=== PATIENT | male | born 1955 | race Caucasian/White ===

== ENCOUNTER 2016-07-13 08:06 | Emergency (ER) | payer OTHER ==
[~2016-07-13] VITALS: Ht 175.3 cm; Wt 111.1 kg
[2016-07-13 09:44] VITALS: BP 128/68
== END 2016-07-13 11:58 | disposition home or self-care (01) ==
LOC: ER 08:06 → EDBD 08:06 → EDUNIT# 08:06 → ER 11:58
DX: S43.004A Unspecified dislocation of right shoulder joint, initial encounter (principal); I10 Essential (primary) hypertension; E07.89 Other specified disorders of thyroid; Z87.891 Personal history of nicotine dependence; X58.XXXA Exposure to other specified factors, initial encounter; Y93.89 Activity, other specified; Y99.8 Other external cause status; Y92.89 Other specified places as the place of occurrence of the external cause
CPT/HCPCS: 23650; 73030; 94760; 99152

== ENCOUNTER 2016-09-21 17:05 | Emergency (ER) | payer OTHER ==
[~2016-09-21] VITALS: Ht 180.3 cm; Wt 99.8 kg
[2016-09-21] MEDS ORDERED: HYDROmorphone HCL 2 MG/ML VL IV ONE (19:00)
[2016-09-21] MEDS ORDERED: ONDANSETRON HCL 4 MG/2 ML VIAL IV ONE (19:00)
[2016-09-21] MEDS ORDERED: SODIUM CHLORIDE 0.9% 1,000 ML IV ONE (19:15)
[2016-09-21] MEDS ORDERED: ETOMIDATE (2MG/ML) 20ML VIAL IV ONE ×2 (19:45→21:00)
[2016-09-21] MEDS ORDERED: SUCCINYLCHOLINE CHLORIDE 20 MG/ML 10ML VIAL IV ONE (19:51)
[2016-09-21 21:10] VITALS: BP 139/88
== END 2016-09-21 22:07 | disposition home or self-care (01) ==
LOC: EDBD 17:05 → ER 17:11
DX: I10 Essential (primary) hypertension (principal); E07.9 Disorder of thyroid, unspecified; Z87.891 Personal history of nicotine dependence; S43.004A Unspecified dislocation of right shoulder joint, initial encounter; X50.9XXA Other and unspecified overexertion or strenuous movements or postures, initial encounter; Y93.89 Activity, other specified; Y92.89 Other specified places as the place of occurrence of the external cause; Y99.8 Other external cause status
CPT/HCPCS: 23650; 73030; 96361; 96374; 96375; 99152; 99285; J1170; J2405; J7030; J0330

== ENCOUNTER 2016-10-18 06:18 | Emergency (ER) | payer OTHER ==
[~2016-10-18] VITALS: Ht 175.3 cm; Wt 108.9 kg
[2016-10-18] MEDS ORDERED: ONDANSETRON HCL 4 MG/2 ML VIAL IV ONE (06:45)
[2016-10-18] MEDS ORDERED: HYDROmorphone HCL 2 MG/ML VL IV ONE (06:45)
[2016-10-18 08:45] VITALS: BP 119/77
== END 2016-10-18 08:54 | disposition home or self-care (01) ==
LOC: ER 06:18 → EDBD 06:18 → ER 08:54
DX: S43.004A Unspecified dislocation of right shoulder joint, initial encounter (principal); I10 Essential (primary) hypertension; Z87.891 Personal history of nicotine dependence; X58.XXXA Exposure to other specified factors, initial encounter; Y93.89 Activity, other specified; Y92.89 Other specified places as the place of occurrence of the external cause; Y99.8 Other external cause status
CPT/HCPCS: 23650; 73030; 96374; 96375; 99284; J1170; J2405

== ENCOUNTER 2016-11-21 14:30 | Emergency (ER) | payer OTHER ==
[~2016-11-21] VITALS: Ht 175.3 cm; Wt 108.9 kg
[2016-11-21 15:30] VITALS: BP 148/84
[2016-11-21] MEDS ORDERED: traMADol HCL 50 MG TAB PO ONE (15:30)
== END 2016-11-21 16:52 | disposition home or self-care (01) ==
LOC: ER 14:30
DX: S43.004A Unspecified dislocation of right shoulder joint, initial encounter (principal); I10 Essential (primary) hypertension; Z87.891 Personal history of nicotine dependence; X58.XXXA Exposure to other specified factors, initial encounter; Y93.89 Activity, other specified; Y99.8 Other external cause status; Y92.89 Other specified places as the place of occurrence of the external cause
CPT/HCPCS: 23650; 73030

== ENCOUNTER 2016-12-23 08:49 | Emergency (ER) | payer OTHER ==
[~2016-12-23] VITALS: Ht 175.3 cm; Wt 108.9 kg
[2016-12-23 09:00] VITALS: BP 146/86
== END 2016-12-23 09:42 | disposition home or self-care (01) ==
LOC: ER 08:49 → EDBD 08:49 → ER 09:10
DX: S43.004A Unspecified dislocation of right shoulder joint, initial encounter (principal); I10 Essential (primary) hypertension; E07.89 Other specified disorders of thyroid; Z87.891 Personal history of nicotine dependence; Z88.8 Allergy status to other drugs, medicaments and biological substances; X58.XXXA Exposure to other specified factors, initial encounter; Y99.8 Other external cause status; Y93.89 Activity, other specified; Y92.89 Other specified places as the place of occurrence of the external cause
CPT/HCPCS: 23650

== ENCOUNTER 2016-12-26 02:47 | Emergency (ER) | payer OTHER ==
[~2016-12-26] VITALS: Ht 175.3 cm; Wt 104.3 kg
[2016-12-26] MEDS ORDERED: HYDROmorphone HCL 2 MG/ML VL IV ONE (04:45)
[2016-12-26] MEDS ORDERED: ONDANSETRON HCL 4 MG/2 ML VIAL IV ONE (04:45)
[2016-12-26 05:45] VITALS: BP 127/74
[2016-12-26] MEDS ORDERED: ETOMIDATE (2MG/ML) 20ML VIAL IV ONE (05:45)
== END 2016-12-26 15:31 | disposition home or self-care (01) ==
LOC: EDBD 02:47 → ER 02:51
DX: S43.004A Unspecified dislocation of right shoulder joint, initial encounter (principal); I10 Essential (primary) hypertension; X58.XXXA Exposure to other specified factors, initial encounter; Y93.89 Activity, other specified; Y92.89 Other specified places as the place of occurrence of the external cause; Y99.8 Other external cause status; Z87.891 Personal history of nicotine dependence; Z88.8 Allergy status to other drugs, medicaments and biological substances
CPT/HCPCS: 23650; 73020; 96374; 96375; 99285; J1170; J2405

== ENCOUNTER 2016-12-31 10:28 | Observation (INO) | payer OTHER ==
[~2016-12-31] VITALS: Ht 177.8 cm; Wt 108.9 kg
[2016-12-31 12:56] LABS: Basophils # (auto) 0.1 uL; Basophils % (auto) 0.9 % (0.0-2.0); Eosinophils # (auto) 0.1 uL; Eosinophils % (auto) 0.7 % (0.0-7.0); Hematocrit 45.3 % (41.0-53.0); Hemoglobin 15.4 g/dL (13.5-17.5); Lymphocytes % (auto) 19.5 % (10.0-50.0); Mean Corpuscular Hemoglobin 29.6 pg (28.0-32.0); Mean Platelet Volume 8.7 fL (6.9-10.8); Monocytes % (auto) 9.7 % (0.0-12.0); Neutrophils % (auto) 69.2 % (37.0-80.0); Nucleated Red Blood Cells % 0.1 %; Platelet Count (auto) 201 10^3/uL (140-450); Red Cell Distribution Width 14.8 % (11.8-14.3); White Blood Cell 10.1 10^3/uL (4.4-10.8)
[2016-12-31 13:09] LABS: INR 0.96 (0.9-1.15); Partial Thromboplastin Time 25.2 sec (22.64-33.71); Prothrombin Time 10.5 sec (9.37-12.3)
[2016-12-31 13:15] LABS: Albumin 3.7 g/dL (3.4-5.0); Anion Gap 7 (5-15); BUN/Creatinine Ratio 15.1; Blood Urea Nitrogen 14 mg/dL (7-18); Calcium 9.8 mg/dL (8.5-10.1); Carbon Dioxide 23 mmol/L (21-32); Chloride 108 mmol/L (98-107); GFR African American 107 mL/min; GFR Non-African American 88 mL/min; Glucose 93 mg/dL (74-106); Magnesium 2.5 mg/dL (1.6-2.6); Potassium 4.1 mmol/L (3.5-5.1); Sodium 138 mmol/L (136-145)
[2016-12-31 13:30] LABS: Alkaline Phosphatase 69 U/L (45-117); Aspartate Aminotransferase 24 U/L (15-37); Bilirubin, Total 0.5 mg/dL (0.2-1.0); Total Protein 7.4 g/dL (6.4-8.2)
[2016-12-31 14:24] VITALS: BP 133/75
== END 2016-12-31 15:05 | disposition home or self-care (01) | DRG 305 ==
LOC: ER 10:28 → OVERFLOW 11:33 → ER 15:05
PROVIDERS: ADMIT Family Medicine; ATTEND Family Medicine
DX: I10 Essential (primary) hypertension (principal); G89.29 Other chronic pain; H66.90 Otitis media, unspecified, unspecified ear; R04.0 Epistaxis; R51 Headache; M54.5 Low back pain; Z87.891 Personal history of nicotine dependence; Z83.3 Family history of diabetes mellitus; Z82.49 Family history of ischemic heart disease and other diseases of the circulatory system
CPT/HCPCS: 36415; 70450; 71010; 80053; 83735; 84484; 85025; 85610; 85730; 93005; 99285; G0378

== ENCOUNTER 2017-01-26 00:14 | Emergency (ER) | payer OTHER ==
[~2017-01-26] VITALS: Ht 175.3 cm; Wt 108.9 kg
[2017-01-26] MEDS ORDERED: cloNIDine HCL 0.1 MG TAB ONE (00:30)
[2017-01-26] MEDS ORDERED: cloNIDine HCL 0.1 MG TAB PO ONE (00:45)
[2017-01-26] MEDS ORDERED: NALBUPHINE HCL 10 MG/1ml INJECTION ONE (04:35)
[2017-01-26] MEDS ORDERED: NALBUPHINE HCL 10 MG/1ml INJECTION IV ONE (05:15)
[2017-01-26 07:30] VITALS: BP 130/87
[2017-01-26] MEDS ORDERED: traMADol HCL 50 MG TAB PO ONE (07:45)
== END 2017-01-26 09:00 | disposition home or self-care (01) ==
LOC: ER 00:15
DX: S43.004A Unspecified dislocation of right shoulder joint, initial encounter (principal); E07.9 Disorder of thyroid, unspecified; I10 Essential (primary) hypertension; Z88.8 Allergy status to other drugs, medicaments and biological substances; X58.XXXA Exposure to other specified factors, initial encounter; Y93.89 Activity, other specified; Y92.89 Other specified places as the place of occurrence of the external cause; Y99.8 Other external cause status
CPT/HCPCS: 23650; 73020; 73030; 96374; 99284; J2300

== ENCOUNTER 2017-02-08 10:14 | Emergency (ER) | payer OTHER ==
[~2017-02-08] VITALS: Ht 175.3 cm; Wt 106.6 kg
[2017-02-08 10:20] VITALS: BP 168/94
== END 2017-02-08 11:08 | disposition home or self-care (01) ==
LOC: ER 10:14
DX: S43.004A Unspecified dislocation of right shoulder joint, initial encounter (principal); I10 Essential (primary) hypertension; Z87.891 Personal history of nicotine dependence; Z83.3 Family history of diabetes mellitus; X58.XXXA Exposure to other specified factors, initial encounter; Y93.89 Activity, other specified; Y92.89 Other specified places as the place of occurrence of the external cause; Y99.8 Other external cause status
CPT/HCPCS: 23650; 73030

== ENCOUNTER 2022-02-09 07:24 | Emergency (ER) | payer OTHER ==
[~2022-02-09] VITALS: Ht 170.2 cm; Wt 76.0 kg
[2022-02-09] MEDS ORDERED: SODIUM CHLORIDE 0.9% 1,000 ML IV ONE (11:30)
[2022-02-09] MEDS ORDERED: SODIUM CHLORIDE 0.9% 500 ML IVB ONE (11:30)
[2022-02-09 12:05] LABS: Basophils # (auto) 0.1 10 ^3/uL (0-0.2); Basophils % (auto) 0.7 % (0.0-2.0); Eosinophils # (auto) 0.1 10 ^3/uL (0-0.8); Eosinophils % (auto) 1.2 % (0.0-7.0); Hematocrit 42.4 % (41.0-53.0); Hemoglobin 13.9 g/dL (13.5-17.5); Lymphocytes # (auto) 1.9 10 ^3/uL (0.4-5.4); Lymphocytes % (auto) 22.8 % (10.0-50.0); Mean Corpuscular Hemoglobin 27.9 pg (28.0-32.0); Mean Corpuscular Hgb Conc. 32.8 g/dL (32.0-36.0); Mean Corpuscular Volume 85.2 fL (80.0-100.0); Monocytes # (auto) 0.9 10 ^3/uL (0-1.3); Monocytes % (auto) 11.3 % (0.0-12.0); Neutrophils # (auto) 5.2 10 ^3/uL (1.6-8.6); Nucleated Red Blood Cells % 0.1 %; Red Blood Cells 4.97 10^6/uL (4.5-5.90); Red Cell Distribution Width 15.4 % (11.8-14.3); White Blood Cell 8.1 10^3/uL (4.4-10.8)
[2022-02-09 12:15] LABS: Albumin 3.4 g/dL (3.4-5.0); Calcium 10.1 mg/dL (8.5-10.1); Potassium 4.6 mmol/L (3.5-5.1)
[2022-02-09 12:19] LABS: BUN/Creatinine Ratio 21.2; Bilirubin, Total 0.8 mg/dL (0.2-1.0); Total Protein 6.4 g/dL (6.4-8.2)
[2022-02-09 17:24] LABS: Urine Bacteria NONE SEEN /hpf (None Seen); Urine Blood Negative /uL (Negative); Urine Mucus FEW (None Seen); Urine Specific Gravity 1.026 (1.001-1.035); Urine WBC 3 /hpf (0 - 3)
[2022-02-09] MEDS ORDERED: FUROSEMIDE 40 MG TAB PO ONE (17:45)
[2022-02-09] MEDS ORDERED: SPIRONOLACTONE 25 MG TAB PO ONE (17:45)
[2022-02-09 17:48] LABS: Amphetamine Screen, Urine NEGATIVE (NEGATIVE); Barbiturate Scree,Urine NEGATIVE (NEGATIVE); Benzodiazephine Screen, Urine NEGATIVE (NEGATIVE); Cannabinoid Screen, Urine POSITIVE (NEGATIVE); Cocaine Screen, Urine NEGATIVE (NEGATIVE); Opiate Scree,Urine NEGATIVE (NEGATIVE); Phencyclidine Screen, Urine NEGATIVE (NEGATIVE)
[2022-02-09 18:03] VITALS: BP 148/73
== END 2022-02-09 18:04 | disposition home or self-care (01) ==
LOC: ER 07:24 → EDBD 07:24 → ER 18:04
DX: R60.9 Edema, unspecified (principal); T78.40XA Allergy, unspecified, initial encounter; R94.31 Abnormal electrocardiogram [ECG] [EKG]; X58.XXXA Exposure to other specified factors, initial encounter
CPT/HCPCS: 36415; 71046; 80053; 80307; 81001; 83690; 83735; 85025; 93005

== ENCOUNTER 2022-06-15 07:53 | Inpatient (IN) | payer MEDICARE, OTHER ==
[~2022-06-15] VITALS: Ht 172.7 cm; Wt 86.4 kg
[~2022-06-15 07:53] MED LIST: ATOR20TA PO; BACL20TA PO; CALC0.25 PO; FINA5TAB4 PO; IBUP800T27 PO; OXY10CRT PO; PERCOT PO; TAM04C PO
[2022-06-15 08:45] LABS: Basophils # (auto) 0.1 10 ^3/uL (0-0.2); Eosinophils # (auto) 0.2 10 ^3/uL (0-0.8); Hemoglobin 8.4 g/dL (13.5-17.5); Mean Corpuscular Hemoglobin 26.9 pg (28.0-32.0); Monocytes # (auto) 0.7 10 ^3/uL (0-1.3); Neutrophils # (auto) 5.7 10 ^3/uL (1.6-8.6)
[2022-06-15 08:47] LABS: Eosinophils % (auto) 2.4 % (0.0-7.0); Lymphocytes # (auto) 1.1 10 ^3/uL (0.4-5.4); Lymphocytes % (auto) 13.9 % (10.0-50.0); Mean Corpuscular Hgb Conc. 32.3 g/dL (32.0-36.0); Mean Corpuscular Volume 83.4 fL (80.0-100.0); Monocytes % (auto) 8.7 % (0.0-12.0); Red Blood Cells 3.12 10^6/uL (4.5-5.90); Red Cell Distribution Width 16.8 % (11.8-14.3); White Blood Cell 7.7 10^3/uL (4.4-10.8)
[2022-06-15 09:03] LABS: INR 1.06 (0.9-1.15); Partial Thromboplastin Time 25.4 sec (24.6-33.4)
[2022-06-15 09:04] LABS: Albumin 2.6 g/dL (3.4-5.0); Potassium 3.4 mmol/L (3.5-5.1)
[2022-06-15 09:07] LABS: BUN/Creatinine Ratio 16.1 (10.0-20.0); Bilirubin, Total 0.3 mg/dL (0.2-1.0)
[2022-06-15] MEDS ORDERED: MORPHINE SULFATE 4 MG/ML SYR/VIAL IV ONE (11:00)
[2022-06-15] MEDS ORDERED: ONDANSETRON HCL 4 MG/2 ML VIAL IV ONE (11:00)
[2022-06-15 11:23] LABS: Urine Bacteria NONE SEEN /hpf (None Seen); Urine Blood 3+ /uL (Negative); Urine Mucus FEW (None Seen); Urine Specific Gravity 1.022 (1.001-1.035); Urine WBC 445 /hpf (0 - 3); Urine WBC Clumps PRESENT /hpf (None Seen)
[2022-06-15] MEDS ORDERED: cefTRIAXone 1GM/50ML D5W 50 ML IV ONE (13:15)
[2022-06-15 13:28] LABS: Basophils # (auto) 0.1 10 ^3/uL (0-0.2); Eosinophils # (auto) 0.2 10 ^3/uL (0-0.8); Monocytes # (auto) 0.8 10 ^3/uL (0-1.3); Red Cell Distribution Width 16.2 % (11.8-14.3)
[2022-06-15 13:30] LABS: Basophils % (auto) 0.7 % (0.0-2.0); Eosinophils % (auto) 2.7 % (0.0-7.0); Hematocrit 25.1 % (41.0-53.0); Lymphocytes # (auto) 1.7 10 ^3/uL (0.4-5.4); Lymphocytes % (auto) 21.1 % (10.0-50.0); Mean Corpuscular Hemoglobin 26.7 pg (28.0-32.0); Mean Corpuscular Hgb Conc. 31.8 g/dL (32.0-36.0); Mean Corpuscular Volume 83.8 fL (80.0-100.0); Monocytes % (auto) 9.7 % (0.0-12.0); Neutrophils # (auto) 5.3 10 ^3/uL (1.6-8.6); Neutrophils % (auto) 65.8 % (37.0-80.0); Red Blood Cells 2.99 10^6/uL (4.5-5.90); White Blood Cell 8.1 10^3/uL (4.4-10.8)
[2022-06-15] MEDS ORDERED: ASPirin 81 mg TAB PO ONE (14:15)
[2022-06-15] MEDS ORDERED: KETOROLAC TROMETH 30 MG/ML 1ML VIAL IV ONE (15:30)
[2022-06-15] MEDS ORDERED: HEPARIN SODIUM (PORCINE) 5000 UNITS/ML 1ML VIAL IV ONE ×2 (16:15→16:30)
[2022-06-15] MEDS ORDERED: NITROGLYCERIN 0.4 MG SL TAB SL PRN (16:15)
[2022-06-15] MEDS ORDERED: HEPARIN DRIP/D5W 100UNITS/ML 250 ML IV SCH (16:15)
[2022-06-15] MEDS ORDERED: MORPHINE SULFATE INJ 2 MG/ml SYRG IV PRN ×2 (16:15→23:30)
[2022-06-15] MEDS ORDERED: HYDROcodone-ACET 5/325MG TAB PO PRN (16:15)
[2022-06-15] MEDS ORDERED: POTASSIUM EFFERVESENT TAB 25 MEQ PO ONE (16:15)
[2022-06-15] MEDS ORDERED: PANTOPRAZOLE 40 MG/10 ML VIAL INJ IV ONE (16:45)
[2022-06-15 17:00] LABS: Eosinophils # (auto) 0.2 10 ^3/uL (0-0.8); Nucleated Red Blood Cells % 0.1 %
[2022-06-15 17:02] LABS: Basophils # (auto) 0.1 10 ^3/uL (0-0.2); Basophils % (auto) 0.7 % (0.0-2.0); Eosinophils % (auto) 3.1 % (0.0-7.0); Hematocrit 24.4 % (41.0-53.0); Lymphocytes # (auto) 1.8 10 ^3/uL (0.4-5.4); Lymphocytes % (auto) 23.9 % (10.0-50.0); Mean Corpuscular Hgb Conc. 32.8 g/dL (32.0-36.0); Mean Corpuscular Volume 82.2 fL (80.0-100.0); Monocytes # (auto) 0.8 10 ^3/uL (0-1.3); Monocytes % (auto) 10.5 % (0.0-12.0); Neutrophils # (auto) 4.7 10 ^3/uL (1.6-8.6); Neutrophils % (auto) 61.8 % (37.0-80.0); Red Blood Cells 2.97 10^6/uL (4.5-5.90); Red Cell Distribution Width 16.3 % (11.8-14.3); White Blood Cell 7.6 10^3/uL (4.4-10.8)
[2022-06-15 17:15] LABS: INR 1.08 (0.9-1.15); Partial Thromboplastin Time 26.9 sec (24.6-33.4)
[2022-06-15 17:19] LABS: % Iron Saturation 6.9 % (20-55)
[2022-06-15] MEDS: HEPARIN DRIP/D5W 100UNITS/ML 250 ML IV SCH (18:04)
[2022-06-15] MEDS: SODIUM CHLORIDE 0.9% 1,000 ML IV SCH (18:32)
[2022-06-15] MEDS: ACETAMINOPHEN 325 MG TAB PO PRN (21:00)
[2022-06-15 22:28] LABS: Basophils # (auto) 0.1 10 ^3/uL (0-0.2); Basophils % (auto) 1.2 % (0.0-2.0); Eosinophils # (auto) 0.3 10 ^3/uL (0-0.8); Nucleated Red Blood Cells % 0.1 %
[2022-06-15 22:29] LABS: Eosinophils % (auto) 3.5 % (0.0-7.0); Hemoglobin 7.8 g/dL (13.5-17.5); Lymphocytes # (auto) 2.3 10 ^3/uL (0.4-5.4); Lymphocytes % (auto) 25.8 % (10.0-50.0); Mean Corpuscular Hemoglobin 26.6 pg (28.0-32.0); Mean Corpuscular Hgb Conc. 32.5 g/dL (32.0-36.0); Mean Corpuscular Volume 82.1 fL (80.0-100.0); Monocytes # (auto) 0.9 10 ^3/uL (0-1.3); Monocytes % (auto) 10.2 % (0.0-12.0); Neutrophils # (auto) 5.4 10 ^3/uL (1.6-8.6); Neutrophils % (auto) 59.3 % (37.0-80.0); Red Blood Cells 2.92 10^6/uL (4.5-5.90); White Blood Cell 9.1 10^3/uL (4.4-10.8)
[2022-06-16 00:51] LABS: INR 1.11 (0.9-1.15); Partial Thromboplastin Time 52.4 sec (24.6-33.4)
[2022-06-16] MEDS ORDERED: DOCUSATE SOD 100 MG CAP PO PRN (01:30)
[2022-06-16] MEDS: ACETAMINOPHEN 325 MG TAB PO PRN ×4 (02:53→22:32)
[2022-06-16] MEDS: BACLOFEN 10 MG TAB PO PRN ×3 (05:13→22:33)
[2022-06-16 06:42] LABS: Basophils # (auto) 0 10 ^3/uL (0-0.2); Basophils % (auto) 0.6 % (0.0-2.0); Eosinophils # (auto) 0.3 10 ^3/uL (0-0.8); Hemoglobin 8.1 g/dL (13.5-17.5); Lymphocytes # (auto) 2.4 10 ^3/uL (0.4-5.4); Monocytes # (auto) 0.7 10 ^3/uL (0-1.3)
[2022-06-16 06:44] LABS: Hematocrit 24.4 % (41.0-53.0); Lymphocytes % (auto) 32.3 % (10.0-50.0); Mean Corpuscular Hemoglobin 27.3 pg (28.0-32.0); Mean Corpuscular Volume 82.6 fL (80.0-100.0); Monocytes % (auto) 8.8 % (0.0-12.0); Neutrophils # (auto) 4.1 10 ^3/uL (1.6-8.6); Neutrophils % (auto) 54.3 % (37.0-80.0); Red Blood Cells 2.96 10^6/uL (4.5-5.90); Red Cell Distribution Width 16.1 % (11.8-14.3); White Blood Cell 7.6 10^3/uL (4.4-10.8)
[2022-06-16 07:00] LABS: Albumin 2.3 g/dL (3.4-5.0); Calcium 8.8 mg/dL (8.5-10.1); Potassium 3.9 mmol/L (3.5-5.1)
[2022-06-16 07:05] LABS: BUN/Creatinine Ratio 19.3 (10.0-20.0); Bilirubin, Total 0.2 mg/dL (0.2-1.0); Total Protein 5.6 g/dL (6.4-8.2)
[2022-06-16 07:15] LABS: INR 1.07 (0.9-1.15); Partial Thromboplastin Time 41.7 sec (24.6-33.4)
[2022-06-16] MEDS: cefTRIAXone 1GM/50ML D5W 50 ML IV SCH (09:02)
[2022-06-16] MEDS: SODIUM CHLORIDE 0.9% 1,000 ML IV SCH (09:02)
[2022-06-16] MEDS: TAMSULOSIN HYDROCHLORIDE 0.4 MG CAP PO SCH (10:13)
[2022-06-16] MEDS: CALCITRIOL 0.25 MCG CAP PO SCH (10:13)
[2022-06-16] MEDS: ATORVASTATIN 20 MG TAB PO SCH (10:13)
[2022-06-16] MEDS: FINASTERIDE 5 MG TAB PO SCH (10:13)
[2022-06-16] MEDS: PANTOPRAZOLE 40 MG/10 ML VIAL INJ IV SCH (10:14)
[2022-06-16] MEDS: HEPARIN DRIP/D5W 100UNITS/ML 250 ML IV SCH (12:29)
[2022-06-16 13:59] LABS: Basophils # (auto) 0.1 10 ^3/uL (0-0.2); Eosinophils # (auto) 0.2 10 ^3/uL (0-0.8); Hemoglobin 8.9 g/dL (13.5-17.5); Lymphocytes # (auto) 1.6 10 ^3/uL (0.4-5.4); Mean Corpuscular Volume 82.5 fL (80.0-100.0); Red Blood Cells 3.34 10^6/uL (4.5-5.90)
[2022-06-16 14:01] LABS: Eosinophils % (auto) 2.8 % (0.0-7.0); Hematocrit 27.6 % (41.0-53.0); Lymphocytes % (auto) 20.9 % (10.0-50.0); Mean Corpuscular Hemoglobin 26.6 pg (28.0-32.0); Mean Corpuscular Hgb Conc. 32.3 g/dL (32.0-36.0); Monocytes # (auto) 0.6 10 ^3/uL (0-1.3); Monocytes % (auto) 8.3 % (0.0-12.0); Neutrophils # (auto) 5.2 10 ^3/uL (1.6-8.6); Red Cell Distribution Width 16.3 % (11.8-14.3); White Blood Cell 7.7 10^3/uL (4.4-10.8)
[2022-06-16 14:16] LABS: INR 1.08 (0.9-1.15); Partial Thromboplastin Time 49.6 sec (24.6-33.4)
[2022-06-16] MEDS ORDERED: HEPARIN DRIP/D5W 100UNITS/ML 250 ML IV SCH (14:45)
[2022-06-16 17:19] VITALS: BP 124/69
[2022-06-16 20:00] VITALS: BP 123/72
[2022-06-16 22:00] VITALS: BP 123/72
[2022-06-16 22:59] LABS: Basophils # (auto) 0.1 10 ^3/uL (0-0.2); Lymphocytes # (auto) 2.4 10 ^3/uL (0.4-5.4); Monocytes # (auto) 0.7 10 ^3/uL (0-1.3); Neutrophils # (auto) 5.1 10 ^3/uL (1.6-8.6); White Blood Cell 8.7 10^3/uL (4.4-10.8)
[2022-06-16 23:00] LABS: Eosinophils # (auto) 0.4 10 ^3/uL (0-0.8); Eosinophils % (auto) 4.1 % (0.0-7.0); Hematocrit 26.3 % (41.0-53.0); Hemoglobin 8.4 g/dL (13.5-17.5); Lymphocytes % (auto) 28.1 % (10.0-50.0); Mean Corpuscular Hgb Conc. 32.1 g/dL (32.0-36.0); Mean Corpuscular Volume 84.2 fL (80.0-100.0); Monocytes % (auto) 8.2 % (0.0-12.0); Neutrophils % (auto) 58.6 % (37.0-80.0); Nucleated Red Blood Cells % 0.1 %; Red Blood Cells 3.12 10^6/uL (4.5-5.90); Red Cell Distribution Width 16.1 % (11.8-14.3)
[2022-06-16 23:17] LABS: INR 1.07 (0.9-1.15)
[2022-06-17] VITALS (7 sets, daily range): BP systolic 132–145; BP diastolic 61–75
[2022-06-17] MEDS: SODIUM CHLORIDE 0.9% 1,000 ML IV SCH ×2 (01:35→19:58)
[2022-06-17 07:07] LABS: % Iron Saturation 8.4 % (20-55)
[2022-06-17 07:08] LABS: INR 1.1 (0.9-1.15)
[2022-06-17 07:55] LABS: Partial Thromboplastin Time 72.6 sec (24.6-33.4)
[2022-06-17] MEDS: CALCITRIOL 0.25 MCG CAP PO SCH (09:31)
[2022-06-17] MEDS: ATORVASTATIN 20 MG TAB PO SCH (09:32)
[2022-06-17] MEDS: FINASTERIDE 5 MG TAB PO SCH (09:32)
[2022-06-17] MEDS: TAMSULOSIN HYDROCHLORIDE 0.4 MG CAP PO SCH (09:32)
[2022-06-17] MEDS: PANTOPRAZOLE 40 MG/10 ML VIAL INJ IV SCH (09:33)
[2022-06-17] MEDS: cefTRIAXone 1GM/50ML D5W 50 ML IV SCH (09:36)
[2022-06-17 11:53] LABS: INR 1.1 (0.9-1.15); Partial Thromboplastin Time 62.1 sec (24.6-33.4)
[2022-06-17 12:04] LABS: Hepatitis A Total Antibody Positive (Negative)
[2022-06-17 12:05] LABS: Hepatitis B Surface Antibody Negative (Negative)
[2022-06-17 13:39] LABS: Hepatitis A Ab IgM Negative; Hepatitis B Core IgM Negative
[2022-06-17 13:42] LABS: Hepatitis C Antibody Reactive (Negative)
[2022-06-17] MEDS: ACETAMINOPHEN 325 MG TAB PO PRN ×2 (14:07→20:40)
[2022-06-17 14:28] LABS: Folate (Folic Acid) 23.51 ng/mL (5.38-24)
[2022-06-17] MEDS: ERTAPENEM SOD INJ 1 GM in SODIUM CHL 0.9% 50 ML IV SCH (21:40)
[2022-06-17] MEDS: APIXABAN 5 MG TAB PO SCH (21:42)
[2022-06-17] MEDS: BACLOFEN 10 MG TAB PO PRN (21:42)
[2022-06-17 23:32] LABS: Partial Thromboplastin Time 72.6 sec (24.6-33.4)
[2022-06-18 05:00] VITALS: BP 128/67
[2022-06-18 06:47] LABS: INR 1.08 (0.9-1.15); Partial Thromboplastin Time 27.1 sec (24.6-33.4)
[2022-06-18 08:30] VITALS: BP 151/61
[2022-06-18] MEDS: PANTOPRAZOLE 40 MG/10 ML VIAL INJ IV SCH (08:59)
[2022-06-18] MEDS: APIXABAN 5 MG TAB PO SCH ×2 (08:59→21:02)
[2022-06-18] MEDS: TAMSULOSIN HYDROCHLORIDE 0.4 MG CAP PO SCH (09:00)
[2022-06-18] MEDS: FINASTERIDE 5 MG TAB PO SCH (09:00)
[2022-06-18] MEDS: CALCITRIOL 0.25 MCG CAP PO SCH (09:00)
[2022-06-18] MEDS: ATORVASTATIN 20 MG TAB PO SCH (09:00)
[2022-06-18] MEDS: SODIUM CHLORIDE 0.9% 1,000 ML IV SCH (09:01)
[2022-06-18] MEDS: ACETAMINOPHEN 325 MG TAB PO PRN ×3 (09:01→21:03)
[2022-06-18] MEDS ORDERED: LOPERAMIDE HCL 2 MG CAP/TAB PO PRN (12:00)
[2022-06-18 12:37] VITALS: BP 141/66
[2022-06-18 17:00] VITALS: BP 118/62
[2022-06-18 20:00] VITALS: BP 142/48
[2022-06-18] MEDS: ERTAPENEM SOD INJ 1 GM in SODIUM CHL 0.9% 50 ML IV SCH (21:02)
[2022-06-18] MEDS: BACLOFEN 10 MG TAB PO PRN (21:03)
[2022-06-18 22:00] VITALS: BP 142/48
[2022-06-19] MEDS: SODIUM CHLORIDE 0.9% 1,000 ML IV SCH ×2 (04:02→21:40)
[2022-06-19] MEDS: ACETAMINOPHEN 325 MG TAB PO PRN ×5 (04:02→22:16)
[2022-06-19 05:17] VITALS: BP 130/64
[2022-06-19 08:00] VITALS: BP 138/64
[2022-06-19 08:30] VITALS: BP 140/68
[2022-06-19 08:36] LABS: Calcium 8.9 mg/dL (8.5-10.1); Potassium 4.1 mmol/L (3.5-5.1)
[2022-06-19 08:42] LABS: Albumin 2.6 g/dL (3.4-5.0); BUN/Creatinine Ratio 11.1 (10.0-20.0); Bilirubin, Total 0.2 mg/dL (0.2-1.0); Total Protein 5.9 g/dL (6.4-8.2)
[2022-06-19] MEDS: PANTOPRAZOLE 40 MG/10 ML VIAL INJ IV SCH (09:33)
[2022-06-19] MEDS: FINASTERIDE 5 MG TAB PO SCH (09:34)
[2022-06-19] MEDS: ATORVASTATIN 20 MG TAB PO SCH (09:34)
[2022-06-19] MEDS: APIXABAN 5 MG TAB PO SCH ×2 (09:34→21:40)
[2022-06-19] MEDS: TAMSULOSIN HYDROCHLORIDE 0.4 MG CAP PO SCH (09:34)
[2022-06-19] MEDS: CALCITRIOL 0.25 MCG CAP PO SCH (09:35)
[2022-06-19] MEDS: BACLOFEN 10 MG TAB PO PRN ×3 (09:35→22:16)
[2022-06-19 12:50] VITALS: BP 145/82
[2022-06-19 17:00] VITALS: BP 134/65
[2022-06-19] MEDS: ERTAPENEM SOD INJ 1 GM in SODIUM CHL 0.9% 50 ML IV SCH (21:39)
[2022-06-19 22:00] VITALS: BP 116/61
[2022-06-20 05:00] VITALS: BP 129/63
[2022-06-20 08:46] VITALS: BP 117/63
[2022-06-20] MEDS: PANTOPRAZOLE 40 MG/10 ML VIAL INJ IV SCH (09:48)
[2022-06-20] MEDS: ATORVASTATIN 20 MG TAB PO SCH (09:49)
[2022-06-20] MEDS: APIXABAN 5 MG TAB PO SCH (09:49)
[2022-06-20] MEDS: CALCITRIOL 0.25 MCG CAP PO SCH (09:49)
[2022-06-20] MEDS: FINASTERIDE 5 MG TAB PO SCH (09:49)
[2022-06-20] MEDS: TAMSULOSIN HYDROCHLORIDE 0.4 MG CAP PO SCH (09:49)
[2022-06-20] MEDS: ACETAMINOPHEN 325 MG TAB PO PRN (09:54)
[2022-06-20] MEDS: BACLOFEN 10 MG TAB PO PRN (09:55)
[2022-06-20] MEDS ORDERED: BACDST PO ×2 (11:26→11:34)
[2022-06-20] MEDS ORDERED: APIX5TAB PO ×2 (11:26→11:34)
[2022-06-20 12:18] VITALS: BP 117/63
[2022-06-20 12:52] VITALS: BP 129/54
[2022-06-20] MEDS: SODIUM CHLORIDE 0.9% 1,000 ML IV SCH (12:55)
== END 2022-06-20 16:45 | disposition home or self-care (01) | DRG 300 ==
LOC: EDBD 07:53 → EDUNIT# 07:53 → ER 07:53 → TELE 16:17 → TELE-WESTW 06-16 15:48
PROVIDERS: ADMIT Nurse Practitioner Family; ATTEND Internal Medicine
DX: I82.412 Acute embolism and thrombosis of left femoral vein (principal); N39.0 Urinary tract infection, site not specified; Z16.12 Extended spectrum beta lactamase (ESBL) resistance; E87.6 Hypokalemia; B96.20 Unspecified Escherichia coli [E. coli] as the cause of diseases classified elsewhere; D63.8 Anemia in other chronic diseases classified elsewhere; K80.20 Calculus of gallbladder without cholecystitis without obstruction; N40.0 Benign prostatic hyperplasia without lower urinary tract symptoms; Z82.0 Family history of epilepsy and other diseases of the nervous system; Z83.3 Family history of diabetes mellitus; Z88.8 Allergy status to other drugs, medicaments and biological substances
CPT/HCPCS: 36415; 76705; 80053; 80074; 81001; 82607; 82728; 82746; 83540; 83550; 84443; 85025; 85379; 85610; 85730; 86038; 86704; 86706; 86708; 86803; 86850; 86900; 86901; 87040; 87081; 87086; 87088; 87186; 87340; 93971; 96361; 96365; 96366; 96375; C9113; G0378; J0696; J1335; J1885; J2405